=== PATIENT | male | born 1965 | race African-American/Black ===

== ENCOUNTER 2017-06-28 22:56 | Emergency (ER) | payer SELFPAY ==
[2017-06-29] MEDS: IV NORMAL SALINE 1000ML BAG 1,000 ML IV (00:04)
[2017-06-29 00:14] LABS: ADD MAN DIFF? NO
[2017-06-29 00:19] LABS: BASO % 0 % (0-3); EOS % 0 % (0-3); HEMATOCRIT 40.8 % (39.0-53.0); HEMOGLOBIN 13.6 g/dL (13.0-17.5); LYMPH % 17 % (24-48); MEAN CORPUSCULAR HEMOGLOBIN 30 pg (25-35); MEAN CORPUSCULAR HGB CONC 33 g/dL (31-37); MEAN CORPUSCULAR VOLUME 90 fL (79-100); MONO # 0.6 x10^3/uL (0.0-1.1); MONO % 5 % (0-9); NEUT # 9.1 x10^3uL (1.8-7.7); NEUT % 77 % (31-73); PLATELET COUNT 213 x10^3/uL (140-400); RED BLOOD COUNT 4.55 x10^6/uL (4.30-5.70); RED CELL DISTRIBUTION WIDTH 14.5 % (11.5-14.5); WHITE BLOOD COUNT 11.8 x10^3/uL (4.0-11.0)
[2017-06-29 00:29] LABS: ANION GAP 10 (6-14); BLOOD UREA NITROGEN 17 mg/dL (8-26); BUN/CREATININE RATIO 19 (6-20); CALCIUM 8.4 mg/dL (8.5-10.1); CARBON DIOXIDE 30 mmol/L (21-32); CHLORIDE 104 mmol/L (98-107); CREATININE 0.9 mg/dL (0.7-1.3); GFR 108.1; GLUCOSE 89 mg/dL (70-99); POTASSIUM 4.5 mmol/L (3.5-5.1); SODIUM 144 mmol/L (136-145)
[2017-06-29] MEDS ORDERED: cloNIDine HCL 0.1 MG TABLET PO (00:30)
[2017-06-29] MEDS: ONDANSETRON PF 4 MG/2 ML VIAL. IV (00:35)
[2017-06-29 00:36] LABS: TROPONINI 0.033 ng/mL (0.000-0.055)
[2017-06-29 00:36] LABS: ALBUMIN 3.6 g/dL (3.4-5.0); ALBUMIN/GLOBULIN RATIO 1.2 (1.0-1.7); ALK PHOS 83 U/L (46-116); ALT (SGPT) 66 U/L (16-63); AST (SGOT) 71 U/L (15-37); TOTAL BILIRUBIN 0.5 mg/dL (0.2-1.0); TOTAL PROTEIN 6.7 g/dL (6.4-8.2)
[2017-06-29 00:42] LABS: NT-PRO BNP 155 pg/mL (0-124)
[2017-06-29 00:42] LABS: CKMB INDEX 1.3 % (0-4); CREATINE KINASE 468 U/L (39-308)
[2017-06-29 01:56] LABS: TROPONIN BY ISTAT 0.05 ng/ml (<0.08)
== END 2017-06-29 02:45 | disposition home or self-care (01) ==
LOC: ER 22:56
DX: F12.10 Cannabis abuse, uncomplicated (principal); F10.10 Alcohol abuse, uncomplicated; R03.0 Elevated blood-pressure reading, without diagnosis of hypertension; F17.210 Nicotine dependence, cigarettes, uncomplicated; F14.10 Cocaine abuse, uncomplicated
CPT/HCPCS: 36415; 70450; 72125; 80053; 82553; 83880; 84484; 85025; 93005; 96361; 96374; 99285-25; J2405; J7030

== ENCOUNTER 2017-08-18 21:31 | Emergency (ER) | payer SELFPAY ==
[2017-08-18 23:30] LABS: ETHANOL 439 mg/dL (0-10)
== END 2017-08-19 06:42 | disposition home or self-care (01) ==
LOC: ER 08-19 06:42
DX: F10.129 Alcohol abuse with intoxication, unspecified (principal); F11.10 Opioid abuse, uncomplicated
CPT/HCPCS: 36415; 51701; 70450; 72125; 99285; G0480

== ENCOUNTER 2018-03-03 14:46 | Emergency (ER) | payer SELFPAY ==
[~2018-03-03] VITALS: Ht 172.7 cm; Wt 81.6 kg
[2018-03-03 15:28] LABS: BASO # 0.1 x10^3/uL (0.0-0.2); BASO % 1 % (0-3); EOS # 0.1 x10^3/uL (0.0-0.7); EOS % 1 % (0-3); HEMATOCRIT 31.8 % (39.0-53.0); HEMOGLOBIN 10.6 g/dL (13.0-17.5); LYMPH # 1.6 x10^3/uL (1.0-4.8); LYMPH % 19 % (24-48); MEAN CORPUSCULAR HEMOGLOBIN 33 pg (25-35); MEAN CORPUSCULAR HGB CONC 33 g/dL (31-37); MEAN CORPUSCULAR VOLUME 100 fL (79-100); MONO # 0.5 x10^3/uL (0.0-1.1); MONO % 6 % (0-9); NEUT % 73 % (31-73); PLATELET COUNT 262 x10^3/uL (140-400); RED BLOOD COUNT 3.19 x10^6/uL (4.30-5.70); RED CELL DISTRIBUTION WIDTH 15.5 % (11.5-14.5); WHITE BLOOD COUNT 8.2 x10^3/uL (4.0-11.0)
[2018-03-03] MEDS ORDERED: THIAMINE IV ONE ×5 (15:30)
[2018-03-03] MEDS ORDERED: FOLIC ACID IV ONE ×5 (15:30)
[2018-03-03] MEDS ORDERED: [UNRECOGNIZED DRUG - OTHER] IV ONE ×5 (15:30)
[2018-03-03] MEDS ORDERED: MULTIVIT INFUSN ADULT K IV ONE ×5 (15:30)
[2018-03-03 15:34] LABS: CALCIUM 7.9 mg/dL (8.5-10.1); CREATININE 0.9 mg/dL (0.7-1.3); GFR 107.6
[2018-03-03 15:40] LABS: ALBUMIN 2.9 g/dL (3.4-5.0); DIRECT BILIRUBIN 0.1 mg/dL (0.0-0.2); MAGNESIUM 1.6 mg/dL (1.8-2.4); TOTAL BILIRUBIN 0.2 mg/dL (0.2-1.0)
[2018-03-03 15:46] LABS: PROTHROMBIN TIME PATIENT 12.8 SEC (11.7-14.0)
[2018-03-03 15:47] LABS: SALIC < 2.8 mg/dL (2.8-20.0)
[2018-03-03 15:50] LABS: ACETAMIN < 2 mcg/ml (10-30); ETHANOL 423 mg/dL (0-10)
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
[2018-03-03 16:54] LABS: BILIRUBIN,URINE NEGATIVE (NEG); CLARITY,URINE CLEAR; COLOR,URINE YELLOW; NITRITE,URINE NEGATIVE (NEG); PROTEIN,URINE NEGATIVE (NEG-TRACE); UROBILINOGEN,URINE 0.2 mg/dL (0.2 mg/dL)
[2018-03-03 17:00] LABS: BARBITURATES POS (NEG); BENZODIAZEPINES NEG (NEG); CANNABINOIDS NEG (NEG); COCAINE POS (NEG); METHADONE NEG (NEG); OPIATES NEG (NEG); PHENCYCLIDINE NEG (NEG)
[2018-03-03 17:03] LABS: AMPHETAMINE/METHAMPHETAMINE NEG (NEG)
[2018-03-03 17:04] LABS: BACTERIA,URINE 0 /HPF (0-FEW); HYALINE CASTS, URINE MANY /HPF; RBC,URINE >40 /HPF (0-2); WBC,URINE OCC /HPF (0-4)
[2018-03-03 17:58] VITALS: BP 117/82
== END 2018-03-03 18:32 | disposition home or self-care (01) ==
LOC: ER 14:46
DX: F10.229 Alcohol dependence with intoxication, unspecified (principal); F14.20 Cocaine dependence, uncomplicated; R40.2420 Glasgow coma scale score 9-12, unspecified time; Y90.8 Blood alcohol level of 240 mg/100 ml or more; I10 Essential (primary) hypertension
CPT/HCPCS: 36415; 80048; 80076; 80307; 80329; 81001; 83735; 85025; 85610; 96365; 99284; G0480; G6039; J3475; J7030

== ENCOUNTER 2019-08-10 17:42 | Emergency (ER) | payer MEDICAID ==
[~2019-08-10] VITALS: Ht 175.3 cm; Wt 72.7 kg
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
[2019-08-10 19:19] LABS: BASO % 2 % (0-3); EOS % 1 % (0-3); HEMATOCRIT 34.6 % (39.0-53.0); HEMOGLOBIN 11.8 g/dL (13.0-17.5); LYMPH % 28 % (24-48); MEAN CORPUSCULAR HEMOGLOBIN 32 pg (25-35); MEAN CORPUSCULAR HGB CONC 34 g/dL (31-37); MEAN CORPUSCULAR VOLUME 93 fL (79-100); MONO # 0.5 x10^3/uL (0.0-1.1); MONO % 15 % (0-9); NEUT # 1.9 x10^3/uL (1.8-7.7); NEUT % 55 % (31-73); PLATELET COUNT 215 x10^3/uL (140-400); RED BLOOD COUNT 3.72 x10^6/uL (4.30-5.70); RED CELL DISTRIBUTION WIDTH 17.2 % (11.5-14.5); WHITE BLOOD COUNT 3.4 x10^3/uL (4.0-11.0)
[2019-08-10] MEDS ORDERED: MULTIVIT INFUSN,ADULT 4,VIT K 10 ML, THIAMINE INJ 100 MG, FOLIC ACID INJ 1 MG in IV NOR... IV ONE (19:30)
[2019-08-10 20:04] LABS: CALCIUM 7.2 mg/dL (8.5-10.1); CREATININE 0.8 mg/dL (0.7-1.3); GFR 122.8
[2019-08-10 20:10] LABS: ALBUMIN 2.8 g/dL (3.4-5.0); DIRECT BILIRUBIN 0.2 mg/dL (0.0-0.2); MAGNESIUM 1.8 mg/dL (1.8-2.4); TOTAL BILIRUBIN 0.5 mg/dL (0.2-1.0)
[2019-08-10 21:14] LABS: BILIRUBIN,URINE NEGATIVE (NEG); CLARITY,URINE CLEAR; COLOR,URINE YELLOW; NITRITE,URINE NEGATIVE (NEG); PH,URINE 6.5 (<5.0-8.0); PROTEIN,URINE NEGATIVE (NEG-TRACE); UROBILINOGEN,URINE 0.2 mg/dL (0.2 mg/dL)
[2019-08-10 21:18] LABS: BACTERIA,URINE 0 /HPF (0-FEW); RBC,URINE 0 /HPF (0-2); SQUAMOUS EPITHELIAL CELL,UR OCC /LPF; WBC,URINE OCC /HPF (0-4)
[2019-08-10 21:20] LABS: BARBITURATES NEG (NEG); BENZODIAZEPINES NEG (NEG); CANNABINOIDS NEG (NEG); COCAINE NEG (NEG); METHADONE NEG (NEG); OPIATES NEG (NEG); PHENCYCLIDINE NEG (NEG)
[2019-08-10 21:21] LABS: AMPHETAMINE/METHAMPHETAMINE NEG (NEG)
[2019-08-11 00:33] VITALS: BP 131/86
== END 2019-08-11 02:51 ==
LOC: ER 17:42
DX: F10.129 Alcohol abuse with intoxication, unspecified (principal); Y90.8 Blood alcohol level of 240 mg/100 ml or more; I10 Essential (primary) hypertension; F17.200 Nicotine dependence, unspecified, uncomplicated
CPT/HCPCS: 36415; 80048; 80076; 80307; 81001; 83735; 85025; 96365; 99285; G0480; J3411; J3490; J7030

== ENCOUNTER 2019-08-20 21:42 | Emergency (ER) | payer MEDICAID ==
[~2019-08-20] VITALS: Ht 175.3 cm; Wt 75.0 kg
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
[2019-08-20 22:18] LABS: CLARITY,URINE CLEAR; COLOR,URINE YELLOW
[2019-08-20 22:19] LABS: BACTERIA,URINE 0 /HPF (0-FEW); BILIRUBIN,URINE NEGATIVE (NEG); NITRITE,URINE NEGATIVE (NEG); PROTEIN,URINE NEGATIVE (NEG-TRACE); RBC,URINE 0 /HPF (0-2); SQUAMOUS EPITHELIAL CELL,UR FEW /LPF; UROBILINOGEN,URINE 0.2 mg/dL (0.2 mg/dL); WBC,URINE 0 /HPF (0-4)
[2019-08-20 22:20] LABS: BARBITURATES NEG (NEG); BENZODIAZEPINES NEG (NEG); CANNABINOIDS NEG (NEG); COCAINE NEG (NEG); METHADONE NEG (NEG); OPIATES NEG (NEG); PHENCYCLIDINE NEG (NEG)
[2019-08-20 22:21] LABS: AMPHETAMINE/METHAMPHETAMINE NEG (NEG)
[2019-08-20] MEDS ORDERED: THIAMINE 100 MG TABLET. PO ONE (22:30)
[2019-08-20] MEDS ORDERED: MULTIVIT INFUSN,ADULT 4,VIT K 10 ML, FOLIC ACID INJ 1 MG in IV NORMAL SALINE 1000ML BAG... IV ONE (22:30)
[2019-08-20 22:43] LABS: BASO % 0 % (0-3); EOS % 0 % (0-3); HEMATOCRIT 31.3 % (39.0-53.0); HEMOGLOBIN 10.7 g/dL (13.0-17.5); LYMPH # 1.5 x10^3/uL (1.0-4.8); LYMPH % 37 % (24-48); MEAN CORPUSCULAR HEMOGLOBIN 32 pg (25-35); MEAN CORPUSCULAR HGB CONC 34 g/dL (31-37); MEAN CORPUSCULAR VOLUME 93 fL (79-100); MONO # 0.3 x10^3/uL (0.0-1.1); MONO % 6 % (0-9); NEUT # 2.3 x10^3/uL (1.8-7.7); NEUT % 56 % (31-73); PLATELET COUNT 115 x10^3/uL (140-400); RED BLOOD COUNT 3.38 x10^6/uL (4.30-5.70); RED CELL DISTRIBUTION WIDTH 17.2 % (11.5-14.5); WHITE BLOOD COUNT 4.2 x10^3/uL (4.0-11.0)
[2019-08-20 22:58] LABS: ALBUMIN 2.5 g/dL (3.4-5.0); CALCIUM 7.2 mg/dL (8.5-10.1); CREATININE 0.8 mg/dL (0.7-1.3); DIRECT BILIRUBIN 0.2 mg/dL (0.0-0.2); GFR 122.8; MAGNESIUM 1.3 mg/dL (1.8-2.4); TOTAL BILIRUBIN 0.7 mg/dL (0.2-1.0)
[2019-08-20 23:00] LABS: POTASSIUM 2.8 mmol/L (3.5-5.1)
[2019-08-20] MEDS: POTASSIUM CHLORIDE 20 MEQ TABLET.ER. PO ONE ×2 (23:30→23:34)
[2019-08-21 00:35] VITALS: BP 116/76
--- NOTE | 2019-08-21 06:38 | EKG ---
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
== END 2019-08-21 00:50 | disposition home or self-care (01) ==
LOC: ER 21:42
DX: F10.229 Alcohol dependence with intoxication, unspecified (principal); R07.89 Other chest pain; I10 Essential (primary) hypertension; F17.200 Nicotine dependence, unspecified, uncomplicated; F14.90 Cocaine use, unspecified, uncomplicated; Z98.890 Other specified postprocedural states
CPT/HCPCS: 36415; 80048; 80076; 80307; 81001; 83735; 85025; 93005; 96365; 99285; G0480; J3490; J7030

== ENCOUNTER 2019-10-17 16:11 | Emergency (ER) | payer MEDICAID ==
[~2019-10-17] VITALS: Ht 175.3 cm; Wt 75.0 kg
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
[2019-10-17 17:43] VITALS: BP 110/70
== END 2019-10-17 21:30 | disposition home or self-care (01) ==
LOC: ER 16:11
DX: F10.229 Alcohol dependence with intoxication, unspecified (principal); Y90.9 Presence of alcohol in blood, level not specified; I10 Essential (primary) hypertension; F14.10 Cocaine abuse, uncomplicated; F17.200 Nicotine dependence, unspecified, uncomplicated
CPT/HCPCS: 99284

== ENCOUNTER 2019-10-29 00:16 | Emergency (ER) | payer MEDICAID ==
[~2019-10-29] VITALS: Ht 172.7 cm; Wt 72.2 kg
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
[2019-10-29 01:07] VITALS: BP 117/81
== END 2019-10-29 05:17 | disposition home or self-care (01) ==
LOC: ER 00:16
DX: F10.229 Alcohol dependence with intoxication, unspecified (principal); R15.9 Full incontinence of feces; I10 Essential (primary) hypertension; F17.200 Nicotine dependence, unspecified, uncomplicated; F14.90 Cocaine use, unspecified, uncomplicated; Z98.890 Other specified postprocedural states
CPT/HCPCS: 82962; 99283

== ENCOUNTER 2019-11-05 03:20 | Emergency (ER) | payer MEDICAID ==
[~2019-11-05] VITALS: Ht 175.3 cm; Wt 75.0 kg
[2019-11-05 03:22] VITALS: BP 129/90
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
== END 2019-11-05 03:55 | disposition home or self-care (01) ==
LOC: ER 03:20
DX: R19.7 Diarrhea, unspecified (principal); F10.10 Alcohol abuse, uncomplicated; I10 Essential (primary) hypertension; F17.200 Nicotine dependence, unspecified, uncomplicated; F14.90 Cocaine use, unspecified, uncomplicated; Z98.890 Other specified postprocedural states
CPT/HCPCS: 99283

== ENCOUNTER 2019-11-16 21:01 | Emergency (ER) | payer MEDICAID ==
[~2019-11-16] VITALS: Ht 175.3 cm; Wt 81.8 kg
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
[2019-11-16] MEDS ORDERED: IV NORMAL SALINE 1000ML BAG 1,000 ML IV ONE (22:30)
[2019-11-16 22:47] LABS: BILIRUBIN,URINE SMALL (NEG); CLARITY,URINE CLOUDY; NITRITE,URINE NEGATIVE (NEG); PROTEIN,URINE 30 mg/dL (NEG-TRACE)
[2019-11-16 22:51] LABS: BACTERIA,URINE MANY /HPF (0-FEW); COLOR,URINE DK YELLOW; SQUAMOUS EPITHELIAL CELL,UR FEW /LPF
[2019-11-16 22:52] LABS: WBC,URINE 20-40 /HPF (0-4)
[2019-11-16 22:53] LABS: RBC,URINE OCC /HPF (0-2)
[2019-11-16 22:54] LABS: HYALINE CASTS, URINE OCCASIONAL /HPF
[2019-11-16 23:19] LABS: BASO # 0.2 x10^3/uL (0.0-0.2); BASO % 2 % (0-3); EOS % 0 % (0-3); HEMATOCRIT 25.2 % (39.0-53.0); HEMOGLOBIN 8.6 g/dL (13.0-17.5); LYMPH # 1.3 x10^3/uL (1.0-4.8); LYMPH % 17 % (24-48); MEAN CORPUSCULAR HEMOGLOBIN 36 pg (25-35); MEAN CORPUSCULAR HGB CONC 34 g/dL (31-37); MEAN CORPUSCULAR VOLUME 107 fL (79-100); MONO # 0.9 x10^3/uL (0.0-1.1); MONO % 11 % (0-9); NEUT # 5.5 x10^3/uL (1.8-7.7); NEUT % 70 % (31-73); PLATELET COUNT 141 x10^3/uL (140-400); RED BLOOD COUNT 2.36 x10^6/uL (4.30-5.70); RED CELL DISTRIBUTION WIDTH 13.7 % (11.5-14.5); WHITE BLOOD COUNT 7.9 x10^3/uL (4.0-11.0)
[2019-11-16 23:28] LABS: CALCIUM 7.7 mg/dL (8.5-10.1); CREATININE 0.7 mg/dL (0.7-1.3); GFR 143.3; POTASSIUM 4.4 mmol/L (3.5-5.1)
[2019-11-16 23:34] LABS: ALBUMIN/GLOBULIN RATIO 0.5 (1.0-1.7); TOTAL BILIRUBIN 1.1 mg/dL (0.2-1.0); TOTAL PROTEIN 6.2 g/dL (6.4-8.2)
[2019-11-17] MEDS ORDERED: LEVO250T7 PO (03:43)
[2019-11-17 04:34] VITALS: BP 95/66
== END 2019-11-17 05:05 | disposition home or self-care (01) ==
LOC: ER 21:01
DX: F10.229 Alcohol dependence with intoxication, unspecified (principal); N30.00 Acute cystitis without hematuria; Z59.0 Homelessness; I10 Essential (primary) hypertension; F17.200 Nicotine dependence, unspecified, uncomplicated
CPT/HCPCS: 36415; 80053; 81001; 83690; 85025; 87086; 96361; 96365; 99285; G0480; J1956; J7030; 87077; 87186

== ENCOUNTER 2019-11-17 15:38 | Emergency (ER) | payer MEDICAID ==
[~2019-11-17] VITALS: Ht 175.3 cm; Wt 82.0 kg
[~2019-11-17 15:38] MED LIST: LEVO250T7 PO
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
[2019-11-17 16:30] VITALS: BP 99/69
== END 2019-11-17 17:15 | disposition home or self-care (01) ==
LOC: ER 15:38
DX: F10.229 Alcohol dependence with intoxication, unspecified (principal); M25.532 Pain in left wrist; I10 Essential (primary) hypertension; F17.200 Nicotine dependence, unspecified, uncomplicated; F14.90 Cocaine use, unspecified, uncomplicated; Z98.890 Other specified postprocedural states
CPT/HCPCS: 70450; 99284